=== PATIENT | male | born 1955 | race Hispanic/Latino ===

== ENCOUNTER 2019-02-19 02:14 | Emergency (ER) | payer OTHER ==
[~2019-02-19 02:14] MED LIST: LEVO500T2 PO; PRED20TA3 PO
[2019-02-19 03:34] LABS: APPEARANCE,URINE Clear (CLEAR); BASOPHILS % (AUTO) 0.5 % (0.0-5.0); BILIRUBIN,URINE Negative (NEGATIVE); COLOR,URINE Yellow (YELLOW); EOSINOPHILS % (AUTO) 0.3 % (0.0-8.0); GLUCOSE, URINE (UA) Negative (NEGATIVE); HEMATOCRIT 46.2 % (42-54); KETONES,URINE Negative (NEGATIVE); LEUKOCYTE ESTERASE ,URINE Negative (NEGATIVE); LYMPHOCYTES % (AUTO) 16.5 % (21.0-51.0); MEAN CORPUSCULAR HEMOGLOBIN 28.9 pg (27.0-33.0); MEAN CORPUSCULAR HGB CONC 33.7 g/dL (32.0-36.0); MEAN CORPUSCULAR VOLUME 85.6 fL (79-99); MONOCYTES % (AUTO) 8.1 % (3.0-13.0); NEUTROPHILS % (AUTO) 74.6 % (40.0-77.0); NITRATE,URINE Negative (NEGATIVE); OCCULT BLOOD,URINE Negative (NEGATIVE); PH,URINE 5.5 (5.0-8.0); PLATELET COUNT (AUTO) 252 K/uL (130-400); PROTEIN,URINE Negative (NEGATIVE); RED CELL DISTRIBUTION WIDTH 13.5 % (11.0-15.5); UROBILINOGEN,URINE 0.2 mg/dL (0.2-1.0); WHITE BLOOD COUNT (AUTO) 11.6 K/uL (4.8-10.8)
[2019-02-19 03:41] LABS: AMPHET/METH SCREEN,URINE NEGATIVE (NEGATIVE); BARBITURATE SCREEN, URINE NEGATIVE (NEGATIVE); BENZODIAZEPINES SCREEN,URINE NEGATIVE (NEGATIVE); CANNABINOID SCREEN,URINE NEGATIVE (NEGATIVE); COCAINE SCREEN,URINE POSITIVE (NEGATIVE); OPIATE SCREEN,URINE NEGATIVE (NEGATIVE); PHENCYCLIDINE SCREEN,URINE NEGATIVE (NEGATIVE)
[2019-02-19 03:42] LABS: POTASSIUM 3.8 mmol/L (3.5-5.1)
[2019-02-19 03:46] LABS: ALBUMIN 3.7 g/dL (3.5-5.0); BILIRUBIN,TOTAL 0.3 mg/dL (0.2-1.0); TOTAL PROTEIN, SERUM 8.4 g/dL (6.0-8.3)
[2019-02-19 03:48] LABS: INR 0.89 (0.85-1.15); PARTIAL THROMBOPLASTIN TIME 33.9 SEC (26.3-35.5); PROTHROMBIN TIME 9.4 SEC (9.6-11.6)
[2019-02-19] MEDS ORDERED: ACETAMINOPHEN 325 MG TAB ONE (03:51)
[2019-02-19] MEDS ORDERED: THIAMINE HCL 100 MG/ML 2ML VIAL ONE (03:51)
[2019-02-19] MEDS ORDERED: GUAIFENESIN SUGAR-FREE 100 MG/5 ML UDCUP ONE (04:16)
== END 2019-02-19 06:18 | disposition home or self-care (01) ==
LOC: EDH 02:14
DX: S00.90XA Unspecified superficial injury of unspecified part of head, initial encounter (principal); J20.9 Acute bronchitis, unspecified; F14.10 Cocaine abuse, uncomplicated; F10.99 Alcohol use, unspecified with unspecified alcohol-induced disorder; I10 Essential (primary) hypertension; E78.5 Hyperlipidemia, unspecified; Y04.8XXA Assault by other bodily force, initial encounter; Y93.89 Activity, other specified; Y92.89 Other specified places as the place of occurrence of the external cause; Y99.8 Other external cause status
CPT/HCPCS: 36415; 70450; 71045; 80053; 80305; 81003; 82550; 84484; 85025; 85610; 85730; 93005; 96365; 99285; G0480; J3411

== ENCOUNTER 2022-07-23 00:16 | Emergency (ER) | payer OTHER ==
[~2022-07-23 00:16] MED LIST changes: +ACET-2743 PO; +ALBU8.5H8 IH; +AMLO2.5T4 PO; +GLEC1TAB PO; +LEVO100C4 PO; -LEVO500T2 PO; +PRED20B PO; -PRED20TA3 PO; +TIOT18CA3 IH
[2022-07-23 01:45] LABS: BASOPHILS % (AUTO) 0.3 % (0.0-5.0); EOSINOPHILS % (AUTO) 0.5 % (0.0-8.0); HEMATOCRIT 45.5 % (42-54); LYMPHOCYTES % (AUTO) 10.5 % (21.0-51.0); MEAN CORPUSCULAR HEMOGLOBIN 25.8 pg (27.0-33.0); MEAN CORPUSCULAR HGB CONC 32.5 g/dL (32.0-36.0); MEAN CORPUSCULAR VOLUME 79.3 fL (79-99); MONOCYTES % (AUTO) 10.6 % (3.0-13.0); NEUTROPHILS % (AUTO) 77.4 % (40.0-77.0); PLATELET COUNT (AUTO) 264 K/uL (130-400); RED BLOOD CELL COUNT(AUTO) 5.74 MIL/uL (4.50-6.20); WHITE BLOOD COUNT (AUTO) 14.6 K/uL (4.8-10.8)
[2022-07-23 01:57] LABS: CREATININE 1.5 mg/dL (0.5-1.5); POTASSIUM 4.2 mmol/L (3.5-5.1)
[2022-07-23 02:02] LABS: ALBUMIN 3.8 g/dL (3.5-5.0); TOTAL PROTEIN, SERUM 7.9 g/dL (6.0-8.3)
[2022-07-23] MEDS ORDERED: SOLU-MEDROL 125MG VIAL IVP ONE (03:30)
[2022-07-23] MEDS ORDERED: IPRATROPIUM/ALBUTEROL SULFATE 3 ML SOLUTION IH ONE (03:30)
[2022-07-23] MEDS ORDERED: CEFTRIAXONE 1G VIAL IVP ONE (03:30)
[2022-07-23] MEDS ORDERED: LIDOCAINE HCL-MPF 2% 5ML VIAL ONE (04:12)
[2022-07-23] MEDS ORDERED: ALBU8.5H8 IH (05:15)
[2022-07-23] MEDS ORDERED: PRED20TA3 PO (05:15)
[2022-07-23] MEDS ORDERED: CEFU500T67 PO (05:15)
[2022-07-23 06:15] VITALS: BP 136/74
== END 2022-07-23 06:16 | disposition home or self-care (01) ==
LOC: EDH 00:16
DX: J44.1 Chronic obstructive pulmonary disease with (acute) exacerbation (principal); Z20.822 Contact with and (suspected) exposure to COVID-19; E03.9 Hypothyroidism, unspecified; K21.9 Gastro-esophageal reflux disease without esophagitis; F17.200 Nicotine dependence, unspecified, uncomplicated; Z79.52 Long term (current) use of systemic steroids
CPT/HCPCS: 99285; 96374; 71045; 87635; 96375; 84484; 80053; 83880; 85025; 87040 ×2; 87804 ×2; 83605; 36415; 93005; 94640; C9803; J2930; J0696 ×2; J3490

== ENCOUNTER 2022-12-05 06:15 | Emergency (ER) | payer OTHER ==
[~2022-12-05] VITALS: Ht 170.2 cm; Wt 73.5 kg
[~2022-12-05 06:15] MED LIST changes: +CEFU500T67 PO; +PRED20TA3 PO
[2022-12-05] MEDS ORDERED: ALBUTEROL 0.083% 2.5 MG/3 ML INH IH ONE (06:24)
[2022-12-05] MEDS: ALBUTEROL 0.083% 2.5 MG/3 ML INH IH ONE ×2 (06:33→09:19)
[2022-12-05 06:45] LABS: BASOPHILS % (AUTO) 0.1 % (0.0-5.0); EOSINOPHILS % (AUTO) 0.3 % (0.0-8.0); HEMATOCRIT 41.6 % (42-54); LYMPHOCYTES % (AUTO) 13.4 % (21.0-51.0); MEAN CORPUSCULAR HEMOGLOBIN 25.4 pg (27.0-33.0); MEAN CORPUSCULAR VOLUME 79.4 fL (79-99); MONOCYTES % (AUTO) 8.6 % (3.0-13.0); NEUTROPHILS % (AUTO) 77.2 % (40.0-77.0); PLATELET COUNT (AUTO) 279 K/uL (130-400); RED BLOOD CELL COUNT(AUTO) 5.24 MIL/uL (4.50-6.20); WHITE BLOOD COUNT (AUTO) 13.7 K/uL (4.8-10.8)
[2022-12-05 06:52] LABS: ALBUMIN 3.8 g/dL (3.5-5.0); CREATININE 1.1 mg/dL (0.5-1.5); POTASSIUM 3.7 mmol/L (3.5-5.1); TOTAL PROTEIN, SERUM 7.1 g/dL (6.0-8.3)
[2022-12-05] MEDS ORDERED: SOLU-MEDROL 125MG VIAL IVP ONE (07:00)
[2022-12-05] MEDS ORDERED: CEFTRIAXONE 1G VIAL IVP SCH (08:30)
[2022-12-05] MEDS ORDERED: AZITHROMYCIN 500MG+NS 250ML IVPB SCH (08:30)
[2022-12-05] MEDS ORDERED: PRED20TA3 PO (09:00)
[2022-12-05] MEDS ORDERED: CEFU500T67 PO (09:00)
[2022-12-05] MEDS ORDERED: IPRATROPIUM/ALBUTEROL SULFATE 3 ML SOLUTION IH ONE (09:00)
[2022-12-05 09:09] LABS: ABG BASE EXCESS -3.2 mmol/L (-2.0-3.0); ABG OXYGEN SATURATION 90.9 % (95.0-99.0); ABG PCO2 35 mmHg (35-48)
[2022-12-05 09:43] VITALS: BP 115/67
== END 2022-12-05 10:31 | disposition home or self-care (01) ==
LOC: EDH 06:15
DX: J44.1 Chronic obstructive pulmonary disease with (acute) exacerbation (principal); I10 Essential (primary) hypertension; Z79.2 Long term (current) use of antibiotics; Z79.899 Other long term (current) drug therapy; Z91.013 Allergy to seafood; Z20.822 Contact with and (suspected) exposure to COVID-19
CPT/HCPCS: 99285; 96365; 71045; 96375; 87635; 84484; 80053; 82803; 85025; 87804 ×2; 36415; 93005; 36600; 94640 ×2; C9803; J2930; J0696; J0456

== ENCOUNTER 2023-06-03 21:02 | Inpatient (IN) | payer OTHER ==
[~2023-06-03] VITALS: Ht 167.6 cm; Wt 64.4 kg
[~2023-06-03 21:02] MED LIST changes: +ALBU6.7H14 IH; +BENZ-226 PO; +BUDE180H IH; +CEFD300C3 PO; -PRED20B PO; +PRED50TA2 PO
[2023-06-03 23:09] LABS: RAPID GROUP A STREP negative (NEGATIVE)
[2023-06-03 23:16] LABS: SARS-CoV-2, RNA, NAAT NEGATIVE SARS CoV-2 (NEGATIVE)
[2023-06-03 23:19] LABS: INFLUENZA TYPE A Negative For Type A (NEGATIVE); INFLUENZA TYPE B Negative For Type B (NEGATIVE)
[2023-06-03] MEDS ORDERED: LACTATED RINGERS 1000ML 1,000 ML IV ONE (23:30)
[2023-06-03] MEDS ORDERED: ACETAMINOPHEN 325 MG TAB PO ONE (23:30)
[2023-06-03 23:46] LABS: BASOPHILS # (AUTO) 0.02 K/uL (0.00-0.20); BASOPHILS % (AUTO) 0.2 % (0.0-5.0); HEMATOCRIT 46.3 % (42-54); IMMATURE GRANULOCYTE ABSOLUTE 0.04 K/uL (0-1); LYMPHOCYTES # (AUTO) 1.8 K/uL (1.0-4.8); LYMPHOCYTES % (AUTO) 18.3 % (21.0-51.0); MEAN CORPUSCULAR HEMOGLOBIN 25.5 pg (27.0-33.0); MEAN CORPUSCULAR HGB CONC 32.6 g/dL (32.0-36.0); MEAN CORPUSCULAR VOLUME 78.3 fL (79-99); MONOCYTES % (AUTO) 9.8 % (3.0-13.0); NEUTROPHILS # (AUTO) 7.2 K/uL (1.8-7.7); NEUTROPHILS % (AUTO) 71.3 % (40.0-77.0); PLATELET COUNT (AUTO) 255 K/uL (130-400); RED BLOOD CELL COUNT(AUTO) 5.91 MIL/uL (4.50-6.20); RED CELL DISTRIBUTION WIDTH 14.6 % (11.0-15.5)
[2023-06-03 23:51] LABS: APPEARANCE,URINE CLOUDY (CLEAR); BILIRUBIN,URINE NEGATIVE (NEGATIVE); COLOR,URINE YELLOW (YELLOW); GLUCOSE, URINE (UA) NEGATIVE (NEGATIVE); KETONES,URINE 5 mg/dL (NEGATIVE); LEUKOCYTE ESTERASE ,URINE NEGATIVE Leu/uL (NEGATIVE); NITRATE,URINE NEGATIVE (NEGATIVE); OCCULT BLOOD,URINE NEGATIVE (NEGATIVE); PROTEIN,URINE 50 mg/dL (NEGATIVE); UROBILINOGEN,URINE 0.2 mg/dL (0.2-1.0)
[2023-06-03 23:58] LABS: CREATININE 3.1 mg/dL (0.5-1.5); POTASSIUM 4.4 mmol/L (3.5-5.1)
[2023-06-03 23:59] LABS: ADD UA MICROSCOPIC YES
[2023-06-04] VITALS (8 sets, daily range): BP systolic 118–145; BP diastolic 62–78; PULSE 75–94; RESP 18–22; O2SAT 95–97
[2023-06-04 00:02] LABS: MUCUS,URINE RARE LPF (None Seen); SQUAMOUS EPITHELIAL CELL,UR RARE /HPF (0-2)
[2023-06-04 00:12] LABS: ALBUMIN 4.8 g/dL (3.5-5.0); BILIRUBIN,TOTAL 0.6 mg/dL (0.2-1.0); TOTAL PROTEIN, SERUM 9.1 g/dL (6.0-8.3)
[2023-06-04] MEDS ORDERED: LACTATED RINGERS 1000ML 1,000 ML IV ONE (00:30)
[2023-06-04 01:36] LABS: CREATININE,URINE RANDOM 264 mg/dL (30-135); SODIUM,URINE RANDOM 41 mmol/l (40-220)
[2023-06-04] MEDS ORDERED: ONDANSETRON 4MG INJ IV PRN (03:00)
[2023-06-04] MEDS ORDERED: ACETAMINOPHEN 325 MG TAB PO PRN ×2 (03:00)
[2023-06-04] MEDS ORDERED: POTASSIUM CHLORIDE 10MEQ/100ML 100 ML IV PRN (03:00)
[2023-06-04] MEDS ORDERED: CEFTRIAXONE 1G VIAL 1 GM in 0.9%NACL 50ML 50 ML IV SCH (03:00)
[2023-06-04] MEDS ORDERED: MAGNESIUM 2GM PREMIX 50ML 50 ML IV PRN (03:00)
[2023-06-04] MEDS ORDERED: POTASSIUM CHLORIDE 10% ELIXIR 20 MEQ/15 ML UDCUP PO PRN (03:00)
[2023-06-04] MEDS ORDERED: KCL 20 MEQ ERTAB PO PRN (03:00)
[2023-06-04] MEDS ORDERED: HYDROMORPHONE 1 MG INJ IV PRN (03:00)
[2023-06-04] MEDS ORDERED: CEFTRIAXONE 1G VIAL ONE (04:15)
[2023-06-04] MEDS: LACTATED RINGERS 1000ML 1,000 ML IV SCH ×2 (04:16→21:00)
[2023-06-04] MEDS: DOXYCYCLINE 100MG+NS 250ML 250 ML IV SCH ×2 (04:16→16:26)
[2023-06-04 04:56] LABS: BASOPHILS # (AUTO) 0.04 K/uL (0.00-0.20); BASOPHILS % (AUTO) 0.5 % (0.0-5.0); EOSINOPHILS # (AUTO) 0.06 K/uL (0.00-0.70); EOSINOPHILS % (AUTO) 0.7 % (0.0-8.0); IMMATURE GRANULOCYTE ABSOLUTE 0.03 K/uL (0-1); LYMPHOCYTES # (AUTO) 2.3 K/uL (1.0-4.8); LYMPHOCYTES % (AUTO) 27.2 % (21.0-51.0); MEAN CORPUSCULAR HEMOGLOBIN 26.1 pg (27.0-33.0); MEAN CORPUSCULAR HGB CONC 32.8 g/dL (32.0-36.0); MEAN CORPUSCULAR VOLUME 79.8 fL (79-99); MONOCYTES # (AUTO) 1.1 K/uL (0.1-1.0); MONOCYTES % (AUTO) 12.9 % (3.0-13.0); NEUTROPHILS # (AUTO) 4.9 K/uL (1.8-7.7); NEUTROPHILS % (AUTO) 58.3 % (40.0-77.0); PLATELET COUNT (AUTO) 202 K/uL (130-400); RED BLOOD CELL COUNT(AUTO) 5.01 MIL/uL (4.50-6.20); RED CELL DISTRIBUTION WIDTH 14.4 % (11.0-15.5); WHITE BLOOD COUNT (AUTO) 8.3 K/uL (4.8-10.8)
[2023-06-04 05:23] LABS: CREATININE 2.1 mg/dL (0.5-1.5); MAGNESIUM 2.2 mg/dL (1.80-2.40); PHOSPHORUS 5.6 mg/dL (2.5-4.9); POTASSIUM 3.8 mmol/L (3.5-5.1); THYROID STIMULATING HORMONE 2.86 uIU/mL (0.36-3.74)
[2023-06-04] MEDS: BUDESONIDE 0.5 MG/2 ML INH IH SCH ×2 (06:12→17:53)
[2023-06-04] MEDS: ALBUTEROL 0.083% 2.5 MG/3 ML INH IH SCH ×3 (06:12→17:53)
[2023-06-04] MEDS ORDERED: SODIUM CHLORIDE 3% FOR INHALATION 4 ML/AMP VIAL.NEB IH ONE ×3 (06:18→17:43)
[2023-06-04] MEDS: LEVOTHYROXINE 100 MCG TABLET PO SCH (06:30)
[2023-06-04] MEDS: PANTOPRAZOLE 40 MG TAB DR PO SCH (08:14)
[2023-06-04] MEDS: AMLODIPINE 5 MG TAB PO SCH (08:14)
[2023-06-04] MEDS: HEPARIN 5,000 UNIT VIAL SQ SCH ×3 (08:15→20:58)
[2023-06-04] MEDS: HYDROCODONE/ACETAMINOPHEN 5/325 MG TAB PO PRN (20:58)
[2023-06-05] VITALS (8 sets, daily range): BP systolic 139–147; BP diastolic 79–92; PULSE 70–80; RESP 18; O2SAT 97–98
[2023-06-05] MEDS: DOXYCYCLINE 100MG+NS 250ML 250 ML IV SCH (03:30)
[2023-06-05] MEDS ORDERED: CEFTRIAXONE 1G VIAL IVPB SCH (05:00)
[2023-06-05 05:18] LABS: HEMATOCRIT 38.9 % (42-54); MEAN CORPUSCULAR HEMOGLOBIN 25.7 pg (27.0-33.0); MEAN CORPUSCULAR HGB CONC 31.6 g/dL (32.0-36.0); MEAN CORPUSCULAR VOLUME 81.2 fL (79-99); PLATELET COUNT (AUTO) 170 K/uL (130-400); RED BLOOD CELL COUNT(AUTO) 4.79 MIL/uL (4.50-6.20); RED CELL DISTRIBUTION WIDTH 14.5 % (11.0-15.5); WHITE BLOOD COUNT (AUTO) 5.7 K/uL (4.8-10.8)
[2023-06-05 05:40] LABS: ALBUMIN 3.2 g/dL (3.5-5.0); BILIRUBIN,TOTAL 0.4 mg/dL (0.2-1.0); CREATININE 1.2 mg/dL (0.5-1.5); MAGNESIUM 1.9 mg/dL (1.80-2.40); PHOSPHORUS 2.9 mg/dL (2.5-4.9); POTASSIUM 4.4 mmol/L (3.5-5.1); THYROID STIMULATING HORMONE 8.01 uIU/mL (0.36-3.74); TOTAL PROTEIN, SERUM 6.4 g/dL (6.0-8.3); URIC ACID 4.8 mg/dL (2.6-7.2)
[2023-06-05] MEDS: LEVOTHYROXINE 100 MCG TABLET PO SCH (05:51)
[2023-06-05 06:23] LABS: BAND NEUTROPHILS % (MANUAL) 1 % (0-2); BASOPHILS % (MANUAL) 1 % (0-2); EOSINOPHILS % (MANUAL) 1 % (1-6); LYMPHOCYTES % (MANUAL) 27 % (22-44); MAN.DIFF COMMENT-IMPRESSION MANUAL DIFFERENTIAL; MONOCYTES % (MANUAL) 6 % (2-9); PLATELET MORPHOLOGY COMMENT ADEQUATE; REACTIVE LYMPHOCYTES 3 % (0-0); SEGMENTED NEUTROPHILS % 61 % (40-70); TOTAL CELLS COUNTED 100; WBC MORPHOLOGY REACTIVE LYMPHS 1+
[2023-06-05] MEDS: ALBUTEROL 0.083% 2.5 MG/3 ML INH IH SCH ×2 (07:30→12:13)
[2023-06-05] MEDS: BUDESONIDE 0.5 MG/2 ML INH IH SCH (07:30)
[2023-06-05] MEDS: HYDROCODONE/ACETAMINOPHEN 5/325 MG TAB PO PRN (08:40)
[2023-06-05] MEDS: PANTOPRAZOLE 40 MG TAB DR PO SCH (08:41)
[2023-06-05] MEDS: AMLODIPINE 5 MG TAB PO SCH (08:41)
[2023-06-05] MEDS: HEPARIN 5,000 UNIT VIAL SQ SCH (08:52)
[2023-06-05] MEDS ORDERED: Vitamin B Complex/Vit C/Folic Acid PO SCH (09:00)
[2023-06-05] MEDS ORDERED: THIAMINE HCL 100 MG/ML 2ML VIAL IVP SCH (09:00)
[2023-06-05] MEDS ORDERED: CEFD300C3 PO (12:35)
== END 2023-06-05 14:20 | disposition home or self-care (01) | DRG 682 ==
LOC: EDH 21:02 → EDHIP 21:03 → 3BH 06-04 18:40
PROVIDERS: ADMIT Internal Medicine; ATTEND Internal Medicine
DX: N17.9 Acute kidney failure, unspecified (principal); J15.6 Pneumonia due to other Gram-negative bacteria; M62.82 Rhabdomyolysis; N39.0 Urinary tract infection, site not specified; J44.0 Chronic obstructive pulmonary disease with (acute) lower respiratory infection; Z20.822 Contact with and (suspected) exposure to COVID-19; E78.5 Hyperlipidemia, unspecified; E03.9 Hypothyroidism, unspecified; E11.22 Type 2 diabetes mellitus with diabetic chronic kidney disease; F17.210 Nicotine dependence, cigarettes, uncomplicated; I12.9 Hypertensive chronic kidney disease with stage 1 through stage 4 chronic kidney disease, or unspecified chronic kidney disease; N18.9 Chronic kidney disease, unspecified; T59.811A Toxic effect of smoke, accidental (unintentional), initial encounter; Z79.51 Long term (current) use of inhaled steroids; Z82.49 Family history of ischemic heart disease and other diseases of the circulatory system; Z59.00 Homelessness unspecified; Z83.3 Family history of diabetes mellitus
CPT/HCPCS: 36415; 71045; 76770; 80048; 80053; 81001; 82550; 82570; 83605; 83690; 83735; 83880; 83935; 84100; 84145; 84300; 84443; 84484; 84550; 85025; 87040; 87071; 87205; 87635; 87804; 87880; 93005; 94640; 94664; C9803; G0378; J0696; J1644; J3411; J3475; J3490; J7120

== ENCOUNTER 2023-09-12 00:04 | Inpatient (IN) | payer OTHER ==
[2023-09-12] VITALS (12 sets, daily range): BP systolic 110–149; BP diastolic 62–87; PULSE 81–101; RESP 16–22; O2SAT 94
[~2023-09-12] VITALS: Ht 167.6 cm; Wt 59.5 kg
[~2023-09-12 00:04] MED LIST changes: -ALBU6.7H14 IH; -BENZ-226 PO; -BUDE180H IH; -CEFU500T67 PO; -PRED20TA3 PO; -PRED50TA2 PO
[2023-09-12 00:40] LABS: SARS-CoV-2, RNA, NAAT NEGATIVE SARS CoV-2 (NEGATIVE)
[2023-09-12 00:47] LABS: INFLUENZA TYPE A Negative For Type A (NEGATIVE); INFLUENZA TYPE B Negative For Type B (NEGATIVE)
[2023-09-12 01:30] LABS: BASOPHILS # (AUTO) 0.02 K/uL (0.00-0.20); BASOPHILS % (AUTO) 0.2 % (0.0-5.0); EOSINOPHILS # (AUTO) 0.04 K/uL (0.00-0.70); EOSINOPHILS % (AUTO) 0.4 % (0.0-8.0); HEMATOCRIT 50.4 % (42-54); IMMATURE GRANULOCYTE ABSOLUTE 0.04 K/uL (0-1); LYMPHOCYTES # (AUTO) 1.6 K/uL (1.0-4.8); LYMPHOCYTES % (AUTO) 14.8 % (21.0-51.0); MEAN CORPUSCULAR HEMOGLOBIN 27.6 pg (27.0-33.0); MEAN CORPUSCULAR HGB CONC 32.3 g/dL (32.0-36.0); MEAN CORPUSCULAR VOLUME 85.3 fL (79-99); MONOCYTES % (AUTO) 8.9 % (3.0-13.0); NEUTROPHILS # (AUTO) 8.2 K/uL (1.8-7.7); NEUTROPHILS % (AUTO) 75.3 % (40.0-77.0); PLATELET COUNT (AUTO) 200 K/uL (130-400); RED BLOOD CELL COUNT(AUTO) 5.91 MIL/uL (4.50-6.20); RED CELL DISTRIBUTION WIDTH 13.1 % (11.0-15.5); WHITE BLOOD COUNT (AUTO) 10.9 K/uL (4.8-10.8)
[2023-09-12 01:40] LABS: CARBON DIOXIDE 31 mmol/L (21-32); CHLORIDE 97 mmol/L (101-111); CREATININE 1.2 mg/dL (0.5-1.5); GLOMERULAR FILTR. RATE CALC 66 mL/min (>90); GLUCOSE,RANDOM 129 mg/dL (70-105); POTASSIUM 3.4 mmol/L (3.5-5.1); SODIUM SERUM 135 mmol/L (136-145); UREA NITROGEN, BLOOD 17 mg/dL (7-18)
[2023-09-12 01:47] LABS: CREATINE KINASE, TOTAL 193 U/L (21-232)
[2023-09-12 01:48] LABS: ALCOHOL, BLOOD < 3 mg/dL (0-10)
[2023-09-12 02:00] LABS: B-TYPE NATRIURETIC PEPTIDE 28 pg/mL (0-100)
[2023-09-12 02:17] LABS: APPEARANCE,URINE CLEAR (CLEAR); BILIRUBIN,URINE NEGATIVE (NEGATIVE); COLOR,URINE LIGHT-YELLOW (YELLOW); GLUCOSE, URINE (UA) NEGATIVE (NEGATIVE); KETONES,URINE NEGATIVE (NEGATIVE); LEUKOCYTE ESTERASE ,URINE NEGATIVE Leu/uL (NEGATIVE); NITRATE,URINE NEGATIVE (NEGATIVE); PROTEIN,URINE 100 mg/dL (NEGATIVE)
[2023-09-12 02:29] LABS: ADD UA MICROSCOPIC YES
[2023-09-12 02:30] LABS: RBC,URINE 0-1 /HPF (0-1); SQUAMOUS EPITHELIAL CELL,UR RARE /HPF (0-2); WBC,URINE 0-1 /HPF (0-1)
[2023-09-12] MEDS ORDERED: SOLU-MEDROL 125MG VIAL IVP ONE (03:00)
[2023-09-12] MEDS ORDERED: CEFTRIAXONE 1G VIAL IVPB ONE (03:00)
[2023-09-12] MEDS ORDERED: MAGNESIUM 2GM PREMIX 50ML 50 ML IV SCH (03:00)
[2023-09-12] MEDS ORDERED: AZITHROMYCIN 250 MG TABLET PO ONE (03:00)
[2023-09-12] MEDS ORDERED: IPRATROPIUM/ALBUTEROL SULFATE 3 ML SOLUTION IH ONE ×2 (03:00→04:00)
[2023-09-12] MEDS ORDERED: ACETAMINOPHEN 325 MG TAB PO PRN ×2 (05:00)
[2023-09-12] MEDS ORDERED: MORPHINE 4 MG SYG IV PRN (05:00)
[2023-09-12] MEDS ORDERED: 0.9%NACL 1000ML 1,000 ML IV SCH (05:00)
[2023-09-12] MEDS ORDERED: ONDANSETRON 4MG INJ IV PRN (05:00)
[2023-09-12] MEDS ORDERED: MORPHINE 2 MG SYG IV PRN (05:00)
[2023-09-12] MEDS ORDERED: POTASSIUM CHLORIDE 20MEQ/100ML 100 ML IV PRN (05:30)
[2023-09-12] MEDS ORDERED: MAGNESIUM 2GM PREMIX 50ML 50 ML IV PRN (05:30)
[2023-09-12] MEDS ORDERED: KCL 20 MEQ ERTAB PO PRN (05:30)
[2023-09-12] MEDS: IPRATROPIUM/ALBUTEROL SULFATE 3 ML SOLUTION IH SCH ×4 (06:50→23:52)
[2023-09-12] MEDS: BUDESONIDE 0.5 MG/2 ML INH IH SCH ×2 (07:04→18:25)
[2023-09-12] MEDS: ENOXAPARIN SODIUM 40 MG/0.4 ML SYRINGE SQ SCH (10:51)
[2023-09-12] MEDS: FAMOTIDINE 20MG TAB PO SCH ×2 (10:52→21:38)
[2023-09-12] MEDS: ZOSYN 3.375GM +NS 50ML IV SCH ×2 (14:48→21:37)
[2023-09-12] MEDS: GUAIFENESIN SUGAR-FREE 100 MG/5 ML UDCUP PO PRN (14:48)
[2023-09-12] MEDS: POTASSIUM CHLORIDE 10% ELIXIR 20 MEQ/15 ML UDCUP PO PRN ×2 (14:49→17:41)
[2023-09-12] MEDS: PREDNISONE 20 MG TABLET PO SCH (14:49)
[2023-09-12 15:12] LABS: AMPHET/METH SCREEN,URINE NEGATIVE (NEGATIVE); BARBITURATE SCREEN, URINE NEGATIVE (NEGATIVE); BENZODIAZEPINES SCREEN,URINE NEGATIVE (NEGATIVE); CANNABINOID SCREEN,URINE NEGATIVE (NEGATIVE); COCAINE SCREEN,URINE POSITIVE (NEGATIVE); OPIATE SCREEN,URINE NEGATIVE (NEGATIVE); PHENCYCLIDINE SCREEN,URINE NEGATIVE (NEGATIVE)
[2023-09-12 15:17] LABS: HIV 1&2 ANTIBODY Non-Reactive (Negative); HIV-1 p24 Antigen Non-Reactive (Negative)
[2023-09-13] VITALS (13 sets, daily range): BP systolic 125–156; BP diastolic 72–93; PULSE 72–89; RESP 17–20; O2SAT 96–97
[2023-09-13 04:00] LABS: BASOPHILS # (AUTO) 0.02 K/uL (0.00-0.20); BASOPHILS % (AUTO) 0.1 % (0.0-5.0); HEMATOCRIT 43.3 % (42-54); LYMPHOCYTES # (AUTO) 0.8 K/uL (1.0-4.8); LYMPHOCYTES % (AUTO) 5.4 % (21.0-51.0); MEAN CORPUSCULAR HEMOGLOBIN 27.4 pg (27.0-33.0); MEAN CORPUSCULAR HGB CONC 32.3 g/dL (32.0-36.0); MEAN CORPUSCULAR VOLUME 84.7 fL (79-99); MONOCYTES # (AUTO) 0.8 K/uL (0.1-1.0); MONOCYTES % (AUTO) 5.4 % (3.0-13.0); NEUTROPHILS # (AUTO) 13.4 K/uL (1.8-7.7); NEUTROPHILS % (AUTO) 88.4 % (40.0-77.0); PLATELET COUNT (AUTO) 227 K/uL (130-400); RED BLOOD CELL COUNT(AUTO) 5.11 MIL/uL (4.50-6.20); RED CELL DISTRIBUTION WIDTH 13.2 % (11.0-15.5); WHITE BLOOD COUNT (AUTO) 15.2 K/uL (4.8-10.8)
[2023-09-13 04:09] LABS: CREATININE 1.1 mg/dL (0.5-1.5); MAGNESIUM 2.1 mg/dL (1.80-2.40); POTASSIUM 4.2 mmol/L (3.5-5.1)
[2023-09-13] MEDS: ZOSYN 3.375GM +NS 50ML IV SCH ×3 (06:09→22:19)
[2023-09-13] MEDS: IPRATROPIUM/ALBUTEROL SULFATE 3 ML SOLUTION IH SCH ×4 (07:02→23:06)
[2023-09-13] MEDS: BUDESONIDE 0.5 MG/2 ML INH IH SCH ×2 (07:02→19:34)
[2023-09-13] MEDS: FAMOTIDINE 20MG TAB PO SCH ×2 (08:25→20:42)
[2023-09-13] MEDS: PREDNISONE 20 MG TABLET PO SCH (08:25)
[2023-09-13] MEDS: ENOXAPARIN SODIUM 40 MG/0.4 ML SYRINGE SQ SCH (08:26)
[2023-09-14] VITALS (16 sets, daily range): BP systolic 144–177; BP diastolic 74–110; PULSE 68–110; RESP 18–39; O2SAT 93–99
[2023-09-14 06:13] LABS: BASOPHILS # (AUTO) 0.01 K/uL (0.00-0.20); BASOPHILS % (AUTO) 0.1 % (0.0-5.0); EOSINOPHILS # (AUTO) 0.01 K/uL (0.00-0.70); EOSINOPHILS % (AUTO) 0.1 % (0.0-8.0); HEMATOCRIT 45.8 % (42-54); IMMATURE GRANULOCYTE ABSOLUTE 0.08 K/uL (0-1); LYMPHOCYTES # (AUTO) 1.8 K/uL (1.0-4.8); LYMPHOCYTES % (AUTO) 16.3 % (21.0-51.0); MEAN CORPUSCULAR HEMOGLOBIN 27.7 pg (27.0-33.0); MEAN CORPUSCULAR HGB CONC 31.7 g/dL (32.0-36.0); MEAN CORPUSCULAR VOLUME 87.4 fL (79-99); MONOCYTES # (AUTO) 0.8 K/uL (0.1-1.0); MONOCYTES % (AUTO) 7.4 % (3.0-13.0); NEUTROPHILS # (AUTO) 8.1 K/uL (1.8-7.7); NEUTROPHILS % (AUTO) 75.4 % (40.0-77.0); PLATELET COUNT (AUTO) 249 K/uL (130-400); RED BLOOD CELL COUNT(AUTO) 5.24 MIL/uL (4.50-6.20); RED CELL DISTRIBUTION WIDTH 13.3 % (11.0-15.5); WHITE BLOOD COUNT (AUTO) 10.8 K/uL (4.8-10.8)
[2023-09-14 06:28] LABS: CREATININE 1.1 mg/dL (0.5-1.5); PHOSPHORUS 2.9 mg/dL (2.5-4.9); POTASSIUM 3.7 mmol/L (3.5-5.1)
[2023-09-14] MEDS: IPRATROPIUM/ALBUTEROL SULFATE 3 ML SOLUTION IH SCH ×4 (07:08→23:27)
[2023-09-14] MEDS: BUDESONIDE 0.5 MG/2 ML INH IH SCH ×2 (07:08→18:38)
[2023-09-14] MEDS: ZOSYN 3.375GM +NS 50ML IV SCH ×3 (10:08→21:34)
[2023-09-14] MEDS: PREDNISONE 20 MG TABLET PO SCH (10:09)
[2023-09-14] MEDS: FAMOTIDINE 20MG TAB PO SCH ×2 (10:10→21:33)
[2023-09-14] MEDS: ENOXAPARIN SODIUM 40 MG/0.4 ML SYRINGE SQ SCH (10:11)
[2023-09-14] MEDS: HYDRALAZINE 20MG/ML VIAL IV PRN ×2 (10:26→11:42)
[2023-09-14] MEDS: BENZONATATE 100 MG CAPSULE PO PRN (11:17)
[2023-09-14] MEDS: GUAIFENESIN SUGAR-FREE 100 MG/5 ML UDCUP PO PRN ×2 (11:17→18:15)
[2023-09-14] MEDS ORDERED: SOLU-MEDROL 40MG VIAL IVP ONE (11:30)
[2023-09-14] MEDS ORDERED: AMLODIPINE 5 MG TAB PO ONE (11:45)
[2023-09-14 11:53] LABS: ABG BASE EXCESS 0.4 mmol/L (-2.0-3.0); ABG HCO3 24.3 mmol/L (21.0-28.0); ABG OXYGEN SATURATION 99.5 % (95.0-99.0); ABG PCO2 37 mmHg (35-48); ABG PH 7.433 (7.35-7.450); CARBON MONOXIDE 0.4; HHb 0.5; PO2, ARTERIAL BG 275.8 mmHg (83.0-108.0); VENT MODE, BG NRM (ROOM AIR)
[2023-09-14] MEDS ORDERED: HYDROXYZINE 25 MG TABLET PO PRN (12:00)
[2023-09-14] MEDS ORDERED: HALOPERIDOL INJ 5 MG/ML VIAL IV PRN (12:30)
[2023-09-14] MEDS: AZITHROMYCIN 500MG+NS 250ML 250 ML IVPB SCH (17:06)
[2023-09-14] MEDS: FUROSEMIDE 40MG VIAL IV SCH (17:11)
[2023-09-14] MEDS: SOLU-MEDROL 40MG VIAL IVP SCH (18:17)
[2023-09-15] VITALS (15 sets, daily range): BP systolic 137–157; BP diastolic 77–104; PULSE 79–105; RESP 18–20; O2SAT 94–98
[2023-09-15] MEDS: SOLU-MEDROL 40MG VIAL IVP SCH ×2 (00:57→15:06)
[2023-09-15] MEDS: FUROSEMIDE 40MG VIAL IV SCH ×2 (00:57→08:32)
[2023-09-15 04:03] LABS: BASOPHILS # (AUTO) 0.01 K/uL (0.00-0.20); BASOPHILS % (AUTO) 0.1 % (0.0-5.0); HEMATOCRIT 48.8 % (42-54); IMMATURE GRANULOCYTE ABSOLUTE 0.06 K/uL (0-1); LYMPHOCYTES # (AUTO) 0.7 K/uL (1.0-4.8); LYMPHOCYTES % (AUTO) 6.4 % (21.0-51.0); MEAN CORPUSCULAR HEMOGLOBIN 27.1 pg (27.0-33.0); MEAN CORPUSCULAR HGB CONC 32.2 g/dL (32.0-36.0); MEAN CORPUSCULAR VOLUME 84.3 fL (79-99); MONOCYTES # (AUTO) 0.3 K/uL (0.1-1.0); MONOCYTES % (AUTO) 3.3 % (3.0-13.0); NEUTROPHILS # (AUTO) 9.4 K/uL (1.8-7.7); NEUTROPHILS % (AUTO) 89.6 % (40.0-77.0); PLATELET COUNT (AUTO) 333 K/uL (130-400); RED BLOOD CELL COUNT(AUTO) 5.79 MIL/uL (4.50-6.20); RED CELL DISTRIBUTION WIDTH 13.4 % (11.0-15.5); WHITE BLOOD COUNT (AUTO) 10.5 K/uL (4.8-10.8)
[2023-09-15 04:20] LABS: ALBUMIN 3.4 g/dL (3.5-5.0); BILIRUBIN,TOTAL 0.2 mg/dL (0.2-1.0); CREATININE 1.4 mg/dL (0.5-1.5); MAGNESIUM 2.3 mg/dL (1.80-2.40); TOTAL PROTEIN, SERUM 8.2 g/dL (6.0-8.3)
[2023-09-15] MEDS: ZOSYN 3.375GM +NS 50ML IV SCH ×3 (05:43→22:57)
[2023-09-15] MEDS: BUDESONIDE 0.5 MG/2 ML INH IH SCH ×2 (06:41→18:34)
[2023-09-15] MEDS: IPRATROPIUM/ALBUTEROL SULFATE 3 ML SOLUTION IH SCH ×4 (06:41→23:14)
[2023-09-15] MEDS: FAMOTIDINE 20MG TAB PO SCH ×2 (08:32→20:34)
[2023-09-15] MEDS: MONTELUKAST SODIUM 10 MG TAB PO SCH (08:32)
[2023-09-15] MEDS: AMLODIPINE 5 MG TAB PO SCH (08:32)
[2023-09-15] MEDS: ENOXAPARIN SODIUM 40 MG/0.4 ML SYRINGE SQ SCH (08:33)
[2023-09-15] MEDS: AZITHROMYCIN 500MG+NS 250ML 250 ML IVPB SCH (15:06)
[2023-09-15] MEDS: BENZONATATE 100 MG CAPSULE PO PRN (16:51)
[2023-09-15] MEDS ORDERED: HEPARIN 25,000 UNITS/250ML D5W 250 ML IV SCH (23:30)
[2023-09-15] MEDS ORDERED: VANCOMYCIN 1.5 GM/250 ML BAG 250 ML IV ONE (23:45)
[2023-09-16] VITALS (10 sets, daily range): BP systolic 143–158; BP diastolic 64–94; PULSE 62–99; RESP 18–20; O2SAT 92–96
[2023-09-16] LABS: HEMATOCRIT 50.4 % (42-54); MEAN CORPUSCULAR HEMOGLOBIN 26.9 pg (27.0-33.0); MEAN CORPUSCULAR HGB CONC 32.3 g/dL (32.0-36.0); RED BLOOD CELL COUNT(AUTO) 6.07 MIL/uL (4.50-6.20); RED CELL DISTRIBUTION WIDTH 13.3 % (11.0-15.5); WHITE BLOOD COUNT (AUTO) 12.7 K/uL (4.8-10.8)
[2023-09-16] MEDS ORDERED: GLUCAGON 1MG KIT 1 MG ML IM PRN
[2023-09-16] MEDS ORDERED: VANCOMYCIN PROTOCOL PER PHARMACY IV SCH
[2023-09-16] MEDS ORDERED: DEXTROSE 50%-WATER 50 ML DISP.SYRIN IV PRN
[2023-09-16 00:11] LABS: INR < 0.93 (0.85-1.15); PROTHROMBIN TIME 10.3 SEC (9.6-11.6)
[2023-09-16 00:12] LABS: PARTIAL THROMBOPLASTIN TIME 28.2 SEC (26.3-35.5)
[2023-09-16] MEDS ORDERED: HEPARIN 1,000 UNIT VIAL IVP SCH (01:00)
[2023-09-16] MEDS ORDERED: HEPARIN 5,000 UNIT VIAL IV SCH (01:00)
[2023-09-16] MEDS: SOLU-MEDROL 40MG VIAL IVP SCH ×2 (02:47→13:58)
[2023-09-16] MEDS: INSULIN HUMULIN R 100 UNIT/ML 3ML SQ SCH ×2 (05:33→11:30)
[2023-09-16] MEDS: ZOSYN 3.375GM +NS 50ML IV SCH ×2 (05:59→13:59)
[2023-09-16] MEDS: BUDESONIDE 0.5 MG/2 ML INH IH SCH (06:31)
[2023-09-16] MEDS: IPRATROPIUM/ALBUTEROL SULFATE 3 ML SOLUTION IH SCH ×2 (06:31→12:03)
[2023-09-16 07:47] LABS: BASOPHILS # (AUTO) 0.04 K/uL (0.00-0.20); BASOPHILS % (AUTO) 0.3 % (0.0-5.0); HEMATOCRIT 52.5 % (42-54); LYMPHOCYTES # (AUTO) 2.4 K/uL (1.0-4.8); LYMPHOCYTES % (AUTO) 16.5 % (21.0-51.0); MEAN CORPUSCULAR HEMOGLOBIN 27.5 pg (27.0-33.0); MEAN CORPUSCULAR HGB CONC 32.2 g/dL (32.0-36.0); MEAN CORPUSCULAR VOLUME 85.5 fL (79-99); MONOCYTES # (AUTO) 1.4 K/uL (0.1-1.0); MONOCYTES % (AUTO) 9.4 % (3.0-13.0); NEUTROPHILS # (AUTO) 10.6 K/uL (1.8-7.7); NEUTROPHILS % (AUTO) 72.4 % (40.0-77.0); PLATELET COUNT (AUTO) 333 K/uL (130-400); RED BLOOD CELL COUNT(AUTO) 6.14 MIL/uL (4.50-6.20); RED CELL DISTRIBUTION WIDTH 13.4 % (11.0-15.5); WHITE BLOOD COUNT (AUTO) 14.6 K/uL (4.8-10.8)
[2023-09-16 08:12] LABS: ALBUMIN 3.4 g/dL (3.5-5.0); BILIRUBIN,TOTAL 0.4 mg/dL (0.2-1.0); CREATININE 1.3 mg/dL (0.5-1.5); MAGNESIUM 2.5 mg/dL (1.80-2.40); POTASSIUM 3.9 mmol/L (3.5-5.1); THYROID STIMULATING HORMONE 5.58 uIU/mL (0.36-3.74); TOTAL PROTEIN, SERUM 7.6 g/dL (6.0-8.3)
[2023-09-16] MEDS: FAMOTIDINE 20MG TAB PO SCH (08:38)
[2023-09-16] MEDS: MONTELUKAST SODIUM 10 MG TAB PO SCH (08:38)
[2023-09-16] MEDS: AMLODIPINE 5 MG TAB PO SCH (08:38)
[2023-09-16] MEDS ORDERED: ASPI-1197 PO (14:10)
[2023-09-16] MEDS ORDERED: MONT-46 PO (14:10)
[2023-09-16] MEDS ORDERED: AMLO5TAB4 PO (14:10)
[2023-09-16] MEDS ORDERED: VANCOMYCIN 1G/250ML KIT 250 ML IV SCH (21:00)
== END 2023-09-16 15:15 | disposition home or self-care (01) | DRG 189 ==
LOC: EDH 00:04 → EDHIP 00:05 → 2AH 07:53 → 2DH 09-14 12:39
PROVIDERS: ADMIT Internal Medicine; ATTEND Internal Medicine
DX: J96.01 Acute respiratory failure with hypoxia (principal); J44.1 Chronic obstructive pulmonary disease with (acute) exacerbation; Z59.00 Homelessness unspecified; E11.65 Type 2 diabetes mellitus with hyperglycemia; D72.829 Elevated white blood cell count, unspecified; Z20.822 Contact with and (suspected) exposure to COVID-19; E87.6 Hypokalemia; F14.10 Cocaine abuse, uncomplicated; F12.10 Cannabis abuse, uncomplicated; F10.10 Alcohol abuse, uncomplicated; B19.20 Unspecified viral hepatitis C without hepatic coma; E03.9 Hypothyroidism, unspecified; F17.210 Nicotine dependence, cigarettes, uncomplicated; I10 Essential (primary) hypertension; K21.9 Gastro-esophageal reflux disease without esophagitis; Z79.51 Long term (current) use of inhaled steroids; Z82.49 Family history of ischemic heart disease and other diseases of the circulatory system; Z83.3 Family history of diabetes mellitus
CPT/HCPCS: 36415; 36600; 71045; 80048; 80053; 80305; 81001; 82435; 82550; 82803; 82947; 82948; 83605; 83735; 83880; 84100; 84132; 84145; 84295; 84439; 84443; 84484; 85018; 85025; 85027; 85610; 85730; 86701; 87040; 87390; 87635; 87804; 93005; 93306; 93356; 94640; 94660; 94664; C9803; G0378; J0360; J0456; J0696; J1630; J1644; J1650; J1940; J2543; J2920; J2930; J3475; J7030; J3370

== ENCOUNTER 2024-04-19 02:10 | Inpatient (IN) | payer OTHER ==
[2024-04-19] VITALS (15 sets, daily range): BP systolic 141–166; BP diastolic 80–101; PULSE 75–97; RESP 14–24; O2SAT 91–99
[~2024-04-19] VITALS: Ht 167.6 cm; Wt 59.6 kg
[~2024-04-19 02:10] MED LIST changes: -AMLO2.5T4 PO; +AMLO5TAB4 PO; +ASPI-1197 PO; +MONT-46 PO
[2024-04-19 02:39] LABS: HEMATOCRIT 46.1 % (42-54); MEAN CORPUSCULAR HEMOGLOBIN 27.3 pg (27.0-33.0); MEAN CORPUSCULAR HGB CONC 32.3 g/dL (32.0-36.0); MEAN CORPUSCULAR VOLUME 84.4 fL (79-99); PLATELET COUNT (AUTO) 241 K/uL (130-400); RED BLOOD CELL COUNT(AUTO) 5.46 MIL/uL (4.50-6.20); RED CELL DISTRIBUTION WIDTH 13.6 % (11.0-15.5); WHITE BLOOD COUNT (AUTO) 8.7 K/uL (4.8-10.8)
[2024-04-19 02:49] LABS: RAPID GROUP A STREP negative (NEGATIVE)
[2024-04-19] MEDS: IPRATROPIUM/ALBUTEROL SULFATE 3 ML SOLUTION IH ONE ×2 (02:51→03:10)
[2024-04-19 02:57] LABS: COVID19 (SARS ANTIGEN RAPID) PRESUMPTIVE NEGATIVE (NEGATIVE); INFLUENZA TYPE A Negative For Type A (NEGATIVE); INFLUENZA TYPE B Negative For Type B (NEGATIVE)
[2024-04-19 03:08] LABS: POTASSIUM 3.6 mmol/L (3.5-5.1)
[2024-04-19 03:13] LABS: ALBUMIN 3.9 g/dL (3.5-5.0); BILIRUBIN,TOTAL 0.5 mg/dL (0.2-1.0); TOTAL PROTEIN, SERUM 7.6 g/dL (6.0-8.3)
[2024-04-19] MEDS ORDERED: DEXTROSE 50%-WATER 50 ML DISP.SYRIN IV PRN (06:00)
[2024-04-19] MEDS ORDERED: NITROGLYCERIN 0.4 MG SL TAB SL PRN (06:00)
[2024-04-19] MEDS ORDERED: FAMOTIDINE 20MG VIAL IV PRN (06:00)
[2024-04-19] MEDS ORDERED: GLUCAGON 1MG KIT 1 MG ML IM PRN (06:00)
[2024-04-19] MEDS ORDERED: ONDANSETRON 4MG INJ IV PRN (06:00)
[2024-04-19] MEDS ORDERED: ALBUTEROL 0.083% 2.5 MG/3 ML INH IH PRN (06:00)
[2024-04-19] MEDS ORDERED: ACETAMINOPHEN 325 MG TAB PO PRN ×2 (06:00)
[2024-04-19] MEDS ORDERED: LACTULOSE 20 GM/30 ML UDCUP PO PRN (06:00)
[2024-04-19] MEDS ORDERED: KETOROLAC 15MG/ML VIAL (15MG/ML) IV PRN (06:00)
[2024-04-19] MEDS ORDERED: POTASSIUM CHLORIDE 10% ELIXIR 20 MEQ/15 ML UDCUP PO PRN (06:00)
[2024-04-19] MEDS ORDERED: DiphenhydrAMINE HCL 50 MG/ML VIAL IV PRN (06:00)
[2024-04-19] MEDS ORDERED: MAG/ALUM/SIMETH 30 ML UDCUP PO PRN (06:00)
[2024-04-19] MEDS ORDERED: ZOLPIDEM TARTRATE 5 MG TAB PO PRN (06:00)
[2024-04-19] MEDS ORDERED: POTASSIUM CHLORIDE 10MEQ/100ML 100 ML IV PRN (06:00)
[2024-04-19] MEDS: DOXYCYCLINE 100MG+NS 250ML 250 ML IV SCH (06:06)
[2024-04-19] MEDS: SOLU-MEDROL 125MG VIAL IV SCH ×2 (06:06→14:26)
[2024-04-19 06:41] LABS: BASOPHILS % (MANUAL) 1 % (0-2); EOSINOPHILS % (MANUAL) 2 % (1-6); LYMPHOCYTES % (MANUAL) 18 % (22-44); MAN.DIFF COMMENT-IMPRESSION MANUAL DIFFERENTIAL; MONOCYTES % (MANUAL) 6 % (2-9); REACTIVE LYMPHOCYTES 1 % (0-0); SEGMENTED NEUTROPHILS % 72 % (40-70); TOTAL CELLS COUNTED 100; WBC MORPHOLOGY NORMAL
[2024-04-19 06:42] LABS: PLATELET MORPHOLOGY COMMENT ADEQUATE
[2024-04-19] MEDS: IPRATROPIUM/ALBUTEROL SULFATE 3 ML SOLUTION IH SCH (07:01)
[2024-04-19 07:06] LABS: HEMOGLOBIN A1C 6.1 % (4.0-6.0)
[2024-04-19] MEDS: INSULIN HUMULIN R 100 UNIT/ML 3ML SQ SCH (07:26)
[2024-04-19 07:35] LABS: ABG HCO3 24.8 mmol/L (21.0-28.0); ABG OXYGEN SATURATION 96.9 % (95.0-99.0); ABG PCO2 41 mmHg (35-48); ABG PH 7.398 (7.35-7.450); PO2, ARTERIAL BG 90.1 mmHg (83.0-108.0); VENT MODE, BG NC (ROOM AIR)
[2024-04-19] MEDS: FAMOTIDINE 20MG VIAL IV SCH (07:37)
[2024-04-19] MEDS: HEPARIN 5,000 UNIT VIAL SQ SCH (07:37)
[2024-04-19 08:30] LABS: MAGNESIUM 1.7 mg/dL (1.80-2.40)
[2024-04-19] MEDS: GUAIFENESIN-DM 200/20 MG 10 ML PO PRN (09:49)
[2024-04-19] MEDS: KCL 20 MEQ ERTAB PO PRN (10:11)
[2024-04-19] MEDS: MAGNESIUM 2GM PREMIX 50ML 50 ML IV PRN (10:12)
[2024-04-19] MEDS ORDERED: INSULIN HUMULIN R 100 UNIT/ML 3ML SQ SCH (11:30)
[2024-04-19] MEDS: HYDRALAZINE 20MG/ML VIAL IV PRN (11:44)
[2024-04-19] MEDS: CEFTRIAXONE 2GM VIAL IVPB SCH (12:54)
[2024-04-19] MEDS ORDERED: LORAZEPAM 2 MG/ML 1 ML VIAL IVP PRN (17:00)
[2024-04-19] MEDS ORDERED: PHARMACY COMMUNICATION MISC PRN (17:00)
[2024-04-19] MEDS: BUDESONIDE 0.5 MG/2 ML INH IH SCH (19:17)
[2024-04-19] MEDS: LOSARTAN 50 MG TABLET PO SCH (20:38)
[2024-04-19] MEDS: CHLORDIAZEPOXIDE HCL 25 MG CAP PO ONE (20:38)
[2024-04-19 21:29] LABS: APPEARANCE,URINE CLEAR (CLEAR); BILIRUBIN,URINE NEGATIVE (NEGATIVE); COLOR,URINE LIGHT-YELLOW (YELLOW); GLUCOSE, URINE (UA) >=1000 mg/dL (NEGATIVE); KETONES,URINE 5 mg/dL (NEGATIVE); LEUKOCYTE ESTERASE ,URINE NEGATIVE Leu/uL (NEGATIVE); NITRATE,URINE NEGATIVE (NEGATIVE); OCCULT BLOOD,URINE NEGATIVE (NEGATIVE); PROTEIN,URINE 30 mg/dL (NEGATIVE); RBC,URINE 0-1 /HPF (0-1); UROBILINOGEN,URINE 0.2 mg/dL (0.2-1.0)
[2024-04-20] VITALS (13 sets, daily range): BP systolic 147–173; BP diastolic 86–99; PULSE 84–98; RESP 16–20; O2SAT 92–97
[2024-04-20] MEDS: HYDRALAZINE 20MG/ML VIAL IV PRN (00:28)
[2024-04-20] MEDS ORDERED: SOLU-MEDROL 40MG VIAL IVP SCH (15:30)
[2024-04-20] MEDS: M.V.I. IV [ADULT] 10 ML, FOLIC ACID 1 MG, THIAMINE HCL 100 MG in 0.9%NACL 1000ML 1,000 ML IV SCH (16:48)
[2024-04-20] MEDS: IPRATROPIUM/ALBUTEROL SULFATE 3 ML SOLUTION IH SCH (18:27)
[2024-04-21] VITALS (16 sets, daily range): BP systolic 144–166; BP diastolic 84–96; PULSE 72–89; RESP 16–20; O2SAT 96–99
[2024-04-21 04:38] LABS: BASOPHILS # (AUTO) 0.02 K/uL (0.00-0.20); BASOPHILS % (AUTO) 0.2 % (0.0-5.0); HEMATOCRIT 46.2 % (42-54); IMMATURE GRANULOCYTE ABSOLUTE 0.07 K/uL (0-1); LYMPHOCYTES # (AUTO) 1.8 K/uL (1.0-4.8); LYMPHOCYTES % (AUTO) 14.4 % (21.0-51.0); MEAN CORPUSCULAR HEMOGLOBIN 27.5 pg (27.0-33.0); MEAN CORPUSCULAR HGB CONC 31.6 g/dL (32.0-36.0); MEAN CORPUSCULAR VOLUME 87.2 fL (79-99); MONOCYTES # (AUTO) 0.9 K/uL (0.1-1.0); MONOCYTES % (AUTO) 6.7 % (3.0-13.0); NEUTROPHILS % (AUTO) 78.2 % (40.0-77.0); PLATELET COUNT (AUTO) 224 K/uL (130-400); RED CELL DISTRIBUTION WIDTH 14.5 % (11.0-15.5); WHITE BLOOD COUNT (AUTO) 12.8 K/uL (4.8-10.8)
[2024-04-21 04:57] LABS: CREATININE 1.3 mg/dL (0.5-1.3); MAGNESIUM 1.8 mg/dL (1.80-2.40); POTASSIUM 4.5 mmol/L (3.5-5.1)
[2024-04-21 05:30] LABS: B-TYPE NATRIURETIC PEPTIDE 27 pg/mL (0-100)
[2024-04-21] MEDS: SOLU-MEDROL 40MG VIAL IVP SCH (08:06)
[2024-04-21] MEDS: AMLODIPINE 5 MG TAB PO SCH (08:07)
[2024-04-21] MEDS ORDERED: AMLODIPINE 5 MG TAB PO SCH (10:00)
[2024-04-21] MEDS ORDERED: PHARMACY COMMUNICATION MISC SCH (11:00)
[2024-04-22] VITALS (14 sets, daily range): BP systolic 109–167; BP diastolic 59–96; PULSE 74–98; RESP 16–20; O2SAT 96–97
[2024-04-22] MEDS: AMLODIPINE 5 MG TAB PO SCH (08:09)
[2024-04-22] MEDS: ACETAMINOPHEN 325 MG TAB PO PRN (13:04)
[2024-04-23] VITALS (8 sets, daily range): BP systolic 134–155; BP diastolic 69–87; PULSE 76–90; RESP 18–20; O2SAT 95–99
== END 2024-04-23 15:45 | disposition home or self-care (01) | DRG 189 ==
LOC: EDH 02:10 → EDHIP 02:11 → 3DH 08:45
PROVIDERS: ADMIT Hospitalist; ATTEND Internal Medicine
DX: J96.01 Acute respiratory failure with hypoxia (principal); J44.1 Chronic obstructive pulmonary disease with (acute) exacerbation; Z59.00 Homelessness unspecified; I10 Essential (primary) hypertension; F14.10 Cocaine abuse, uncomplicated; J43.9 Emphysema, unspecified; F40.240 Claustrophobia; Z82.49 Family history of ischemic heart disease and other diseases of the circulatory system; Z83.3 Family history of diabetes mellitus; Z87.891 Personal history of nicotine dependence
CPT/HCPCS: 36415; 36600; 71045; 71250; 80048; 80053; 81001; 82140; 82550; 82803; 82948; 83036; 83605; 83735; 83880; 84145; 85025; 85378; 87071; 87205; 87426; 87804; 87880; 93005; 94640; 94664; 96365; 96372; 96375; G0378; J0360; J0696; J1644; J1815; J2919; J2920; J3411; J3475; J3490; J7030; G8980-CH; G8983-CH

== ENCOUNTER 2024-08-04 05:36 | Emergency (ER) | payer MEDICARE ==
[2024-08-04 07:16] LABS: BASOPHILS # (AUTO) 0.03 K/uL (0.00-0.20); BASOPHILS % (AUTO) 0.3 % (0.0-5.0); EOSINOPHILS # (AUTO) 0.04 K/uL (0.00-0.70); EOSINOPHILS % (AUTO) 0.4 % (0.0-8.0); HEMATOCRIT 45.7 % (42-54); IMMATURE GRANULOCYTE ABSOLUTE 0.04 K/uL (0-1); LYMPHOCYTES # (AUTO) 0.7 K/uL (1.0-4.8); LYMPHOCYTES % (AUTO) 6.1 % (21.0-51.0); MEAN CORPUSCULAR HEMOGLOBIN 27.2 pg (27.0-33.0); MEAN CORPUSCULAR HGB CONC 32.2 g/dL (32.0-36.0); MEAN CORPUSCULAR VOLUME 84.6 fL (79-99); MONOCYTES % (AUTO) 9.2 % (3.0-13.0); NEUTROPHILS # (AUTO) 9.5 K/uL (1.8-7.7); NEUTROPHILS % (AUTO) 83.6 % (40.0-77.0); PLATELET COUNT (AUTO) 200 K/uL (130-400); RED CELL DISTRIBUTION WIDTH 13.6 % (11.0-15.5); WHITE BLOOD COUNT (AUTO) 11.3 K/uL (4.8-10.8)
[2024-08-04 07:23] LABS: CREATININE 1.1 mg/dL (0.5-1.3); POTASSIUM 4.3 mmol/L (3.5-5.1)
[2024-08-04] MEDS: cloNIDine HCL 0.2 MG TABLET PO ONE (07:44)
[2024-08-04 09:50] VITALS: BP 138/71; PULSE 78; RESP 18; TEMP 98.1; O2SAT 97
== END 2024-08-04 09:55 | disposition home or self-care (01) ==
LOC: EDH 05:36
DX: T18.9XXA Foreign body of alimentary tract, part unspecified, initial encounter (principal); F10.10 Alcohol abuse, uncomplicated; F14.10 Cocaine abuse, uncomplicated; F17.200 Nicotine dependence, unspecified, uncomplicated; I10 Essential (primary) hypertension; J44.9 Chronic obstructive pulmonary disease, unspecified; Z59.00 Homelessness unspecified; W44.9XXA Unspecified foreign body entering into or through a natural orifice, initial encounter
CPT/HCPCS: 36415; 70360; 71045; 80048; 85025